=== PATIENT | female | born 1990 | race Caucasian/White ===

== ENCOUNTER 2021-05-21 17:20 | Outpatient (CLI) | payer OTHER ==
--- NOTE | 2021-05-21 17:48 | XRAY Report ---
PROCEDURE: Shoulder 3 View LT INDICATIONS: LEFT SHOULDER PAIN TECHNIQUE: 3 views of the shoulder were acquired. COMPARISON: None. FINDINGS: Bones: No fractures or dislocations. No suspicious bony lesions. Visualized ribs appear intact. Soft tissues: No suspicious soft tissue calcifications. IMPRESSION: Unremarkable radiographic examination of left shoulder. Reviewed by: Kirby Lomeli MD on 05/21/2021 5:47 PM PDT Approved by: Kirby Lomeli MD on 05/21/2021 5:47 PM PDT Station ID: [id number]
== END 2021-05-21 23:59 | disposition home or self-care (01) ==
LOC: DI.N 17:20
PROVIDERS: ATTEND Emergency Medicine
DX: M25.512 Pain in left shoulder (principal)